=== PATIENT | female | born 1990 | race Caucasian/White ===

== ENCOUNTER 2022-09-04 16:59 | Emergency (ER) | payer SELFPAY ==
[2022-09-04 17:46] LABS: BLOOD UREA NITROGEN,BUN 17 mg/dL (7.0-18.0); CARBON DIOXIDE,CO2 26.3 mmol/L (21.0-32.0); CHLORIDE,CL 102 mmol/L (98-107); GLUCOSE RANDOM 90 mg/dL (74-106); POTASSIUM,K 3.8 mmol/L (3.5-5.1); SODIUM,NA 139 mmol/L (136-145)
[2022-09-04 17:51] LABS: ESTIMATED GFR 77 mL/min (>60)
[2022-09-04 18:31] LABS: CORONAVIRUS COVID-19 NAA NEGATIVE (NEGATIVE); INFLUENZA A NAA NEGATIVE (NEGATIVE); INFLUENZA B NAA NEGATIVE (NEGATIVE)
== END 2022-09-04 19:39 | disposition home or self-care (01) ==
LOC: MW.ED 16:59
DX: R12 Heartburn (principal); Z20.822 Contact with and (suspected) exposure to COVID-19
CPT/HCPCS: 0240U; 36415; 71045; 80053; 81003; 83735; 84484; 85025; 93005; 99284; 93010; 99283